=== PATIENT | male | born 1955 | race Caucasian/White ===

== ENCOUNTER 2024-01-29 07:06 | Emergency (ER) | payer BC, OTHER ==
[~2024-01-29] VITALS: Ht 188 cm; Wt 111.1 kg
[2024-01-29 07:15] VITALS: BP 128/72; PULSE 72; RESP 18; TEMP 98.1; O2SAT 100
[2024-01-29] MEDS: BACITRACIN OINT 500 UNITS/GM PKT TP ONE (08:23)
[2024-01-29] MEDS ORDERED: NAPR-1704 PO (08:43)
[2024-01-29 09:47] VITALS: BP 140/72; PULSE 68; RESP 18; TEMP 98.1; O2SAT 99
== END 2024-01-29 09:47 | disposition home or self-care (01) ==
LOC: MED 07:06
DX: S50.312A Abrasion of left elbow, initial encounter (principal); I10 Essential (primary) hypertension; Z96.652 Presence of left artificial knee joint; V89.2XXA Person injured in unspecified motor-vehicle accident, traffic, initial encounter; Y93.89 Activity, other specified; Y92.89 Other specified places as the place of occurrence of the external cause; Y99.8 Other external cause status
CPT/HCPCS: 71045; 73030; 99284